=== PATIENT | male | born 1965 | race Caucasian/White ===

== ENCOUNTER 2021-01-30 02:06 | Inpatient (IN) | payer OTHER ==
[~2021-01-30] VITALS: Ht 172.7 cm; Wt 95.8 kg
--- NOTE | 2021-01-30 02:28 | NUR ---
PT STATES. LOWER LEFT PAIN STARTED THURSDAY. WOKE UP AROUND MIDNIGHT TONIGHT WITH PAIN COULD GO BACK TO SLEEP.
--- NOTE | 2021-01-30 02:48 | NUR ---
PT STATES HAS HYPERTENSION AND TAKES [id number] AND HAS BEEN TAKING IT FOR THE LAST 2 YEARS.
--- NOTE | 2021-01-30 02:55 | NUR ---
PT STATES "HAS ALSO HAD CHILLS WITH PAIN RADIATES GOES TO BACK"
[2021-01-30] MEDS ORDERED: ONDANSETRON 2MG/ML, 2ML IVPush ONE (03:00)
[2021-01-30] MEDS ORDERED: ONDANSETRON 2MG/ML, 2ML ONE (03:07)
[2021-01-30] MEDS ORDERED: MORPHINE SULFATE 4 MG/ML, 1ML ONE ×2 (03:08→06:12)
[2021-01-30 03:19] LABS: BASOPHILS % (AUTO) 2 % (0-1); EOSINOPHILS % (AUTO) 3 % (1-7); LYMPHOCYTES % (AUTO) 24 % (22-44); MEAN CORPUSCULAR HEMOGLOBIN 29.9 pg (27.5-34.5); MEAN CORPUSCULAR HGB CONC 35.3 g/dL (33.2-36.2); MEAN PLATELET VOLUME 8.5 fL (7.4-10.4); MONOCYTES % (AUTO) 8 % (2-9); NEUTROPHILS % (AUTO) 64 % (42-75); PLATELET COUNT 248 x10^3/uL (130-400); RED BLOOD COUNT 5.44 x10^6/uL (4.38-5.82); RED CELL DISTRIBUTION WIDTH 13.4 % (9.4-14.8)
[2021-01-30] MEDS: MORPHINE SULFATE 4 MG/ML, 1ML IVPush PRN ×2 (03:19→06:14)
[2021-01-30 03:20] LABS: MD NO
[2021-01-30 03:30] LABS: ALANINE AMINOTRANSFERASE 45 U/L (12-78); ALBUMIN 3.4 g/dL (3.4-5.0); ANION GAP 4 mmol/L (5-15); CALCIUM 8.6 mg/dL (8.5-10.1); CHLORIDE 107 mmol/L (98-107)
[2021-01-30 03:33] LABS: ALKALINE PHOSPHATASE 61 U/L (45-117); BILIRUBIN,TOTAL 0.4 mg/dL (0.2-1.0); TOTAL PROTEIN 7.3 g/dL (6.4-8.2)
[2021-01-30] MEDS ORDERED: OMNIPAQUE 350 MG/ML, 100ML BOTTLE ONE (04:08)
--- NOTE | 2021-01-30 04:14 | NUR ---
PT BACK FROM CT.
[2021-01-30 04:30] LABS: MICROSCOPIC NOT IND
[2021-01-30] MEDS ORDERED: CIPROFLOXACIN/PMX 400MG/200ML 200 ML IVPB ONE (05:30)
[2021-01-30] MEDS ORDERED: METRONIDAZOLE PMX 500MG/100ML 100 ML IV ONE (05:30)
[2021-01-30] MEDS ORDERED: METRONIDAZOLE PMX 500MG/100ML 100 ML ONE (05:54)
[2021-01-30] MEDS ORDERED: CIPROFLOXACIN/PMX 400MG/200ML 200 ML ONE (06:25)
--- NOTE | 2021-01-30 06:25 | NUR ---
PT VSS, ANTIBIOTIC THERAPY STARTED, PT EDUCATED. CALL [facility] WITHIN REACH.
[2021-01-30] MEDS ORDERED: hydrALAzine 20 MG/ML, 1ML IVPush PRN (06:30)
[2021-01-30] MEDS ORDERED: ONDANSETRON 2MG/ML, 2ML IVPush PRN (06:30)
[2021-01-30] MEDS: ENOXAPARIN 40 MG/0.4 ML SQ SCH (06:30)
[2021-01-30] MEDS ORDERED: DIPHENHYDRAMINE 25 MG CAPSULE PO PRN (06:30)
[2021-01-30] MEDS ORDERED: MORPHINE SULFATE 4 MG/ML, 1ML IVPush PRN (06:30)
[2021-01-30] MEDS: METRONIDAZOLE PMX 500MG/100ML 100 ML IV SCH ×3 (06:30→23:12)
[2021-01-30] MEDS ORDERED: ENALAPRILAT 1.25 MG/ML, 2ML IVPush PRN (06:30)
[2021-01-30] MEDS ORDERED: ONDANSETRON ODT 4 MG PO PRN (06:30)
--- NOTE | 2021-01-30 06:58 | NUR ---
GAVE REPORT SCOTTIE RN, RM [phone]. ALL QUESTION ADDRESSED.
[2021-01-30] MEDS: SODIUM CHLORIDE 0.9% 1,000 ML IV SCH ×3 (07:32→23:12)
[2021-01-30] MEDS: CIPROFLOXACIN/PMX 400MG/200ML 200 ML IV SCH ×2 (07:32→18:05)
[2021-01-30 07:33] VITALS: BP 151/95
[2021-01-30] MEDS ORDERED: LOSA1TAB22 PO (12:12)
[2021-01-30 12:43] VITALS: BP 136/85
[2021-01-30] MEDS: morphine SULFATE 10 MG/ML, 1ML IVPush PRN (14:33)
[2021-01-30 15:17] VITALS: BP 151/95
[2021-01-30] MEDS: NICOTINE 14MG/24 HR PATCH.TD24 TD SCH (17:34)
[2021-01-30 19:21] VITALS: BP 158/99
[2021-01-30] MEDS: HYDROcodone/APAP 5/325 TABLET PO PRN ×2 (20:15→21:29)
[2021-01-31] MEDS: morphine SULFATE 10 MG/ML, 1ML IVPush PRN ×2 (00:44→15:35)
[2021-01-31] MEDS: ACETAMINOPHEN 325 MG TABLET PO PRN (03:35)
[2021-01-31 04:00] VITALS: BP 157/91
[2021-01-31 05:28] LABS: BASOPHILS % (AUTO) 1 % (0-1); EOSINOPHILS % (AUTO) 3 % (1-7); LYMPHOCYTES % (AUTO) 20 % (22-44); MEAN CORPUSCULAR HEMOGLOBIN 29.5 pg (27.5-34.5); MEAN CORPUSCULAR HGB CONC 33.9 g/dL (33.2-36.2); MEAN PLATELET VOLUME 8.5 fL (7.4-10.4); MONOCYTES % (AUTO) 9 % (2-9); NEUTROPHILS % (AUTO) 67 % (42-75); PLATELET COUNT 227 x10^3/uL (130-400); RED BLOOD COUNT 4.88 x10^6/uL (4.38-5.82); RED CELL DISTRIBUTION WIDTH 13.5 % (9.4-14.8)
[2021-01-31] MEDS: CIPROFLOXACIN/PMX 400MG/200ML 200 ML IV SCH ×2 (05:36→17:39)
[2021-01-31 05:44] LABS: MD NO
[2021-01-31 05:52] LABS: ALBUMIN 2.9 g/dL (3.4-5.0); ANION GAP 4 mmol/L (5-15); CHLORIDE 107 mmol/L (98-107)
[2021-01-31 05:58] LABS: ALANINE AMINOTRANSFERASE 35 U/L (12-78); ALKALINE PHOSPHATASE 55 U/L (45-117); BILIRUBIN,TOTAL 0.6 mg/dL (0.2-1.0); CREATININE 1.08 mg/dL (0.7-1.3); TOTAL PROTEIN 6.5 g/dL (6.4-8.2)
[2021-01-31] MEDS: ENOXAPARIN 40 MG/0.4 ML SQ SCH (06:30)
[2021-01-31] MEDS: METRONIDAZOLE PMX 500MG/100ML 100 ML IV SCH ×3 (06:39→22:58)
[2021-01-31 07:06] VITALS: BP 155/95
[2021-01-31] MEDS: SODIUM CHLORIDE 0.9% 1,000 ML IV SCH ×2 (10:00→19:40)
[2021-01-31] MEDS: HYDROcodone/APAP 5/325 TABLET PO PRN ×2 (12:18→22:57)
[2021-01-31 13:05] VITALS: BP 153/95
[2021-01-31] MEDS: NICOTINE 14MG/24 HR PATCH.TD24 TD SCH ×2 (17:30→17:39)
[2021-01-31 19:30] VITALS: BP 152/96
[2021-02-01 03:20] VITALS: BP 163/89
[2021-02-01] MEDS: HYDROcodone/APAP 5/325 TABLET PO PRN ×2 (03:21→12:08)
[2021-02-01] MEDS: SODIUM CHLORIDE 0.9% 1,000 ML IV SCH ×3 (03:21→21:04)
[2021-02-01] MEDS: ENOXAPARIN 40 MG/0.4 ML SQ SCH (05:58)
[2021-02-01] MEDS: CIPROFLOXACIN/PMX 400MG/200ML 200 ML IV SCH ×2 (06:01→17:30)
[2021-02-01 07:04] VITALS: BP_SYST 167; BP_SYST 170; BP_DIAS 100; BP_DIAS 101
[2021-02-01] MEDS: METRONIDAZOLE PMX 500MG/100ML 100 ML IV SCH ×3 (07:44→23:08)
[2021-02-01 09:14] VITALS: BP 156/93
[2021-02-01] MEDS: ONDANSETRON 2MG/ML, 2ML IVPush PRN (09:15)
[2021-02-01 13:22] VITALS: BP 130/86
[2021-02-01] MEDS: NICOTINE 14MG/24 HR PATCH.TD24 TD SCH ×2 (15:11→15:12)
[2021-02-01 19:16] VITALS: BP 131/85
[2021-02-02] VITALS (7 sets, daily range): BP systolic 132–161; BP diastolic 72–102
[2021-02-02] MEDS: SODIUM CHLORIDE 0.9% 1,000 ML IV SCH (04:45)
[2021-02-02] MEDS: HYDROcodone/APAP 5/325 TABLET PO PRN (04:46)
[2021-02-02] MEDS: ONDANSETRON 2MG/ML, 2ML IVPush PRN (04:50)
[2021-02-02] MEDS: CIPROFLOXACIN/PMX 400MG/200ML 200 ML IV SCH (06:25)
[2021-02-02] MEDS: ENOXAPARIN 40 MG/0.4 ML SQ SCH (06:26)
[2021-02-02] MEDS: METRONIDAZOLE PMX 500MG/100ML 100 ML IV SCH (07:44)
[2021-02-02] MEDS: LOSARTAN PO SCH (07:44)
[2021-02-02] MEDS: HCTZ PO SCH (07:44)
[2021-02-02] MEDS ORDERED: LOSARTAN PO SCH (09:00)
[2021-02-02] MEDS ORDERED: HCTZ PO SCH (09:00)
[2021-02-02] MEDS ORDERED: CIPROFLOXACIN 500 MG/5 ML, ORAL SUSP PO SCH (11:00)
[2021-02-02] MEDS: metroNIDAZOLE 500 MG TABLET PO SCH (16:09)
[2021-02-02] MEDS: NICOTINE 14MG/24 HR PATCH.TD24 TD SCH (16:13)
[2021-02-02] MEDS: ACETAMINOPHEN 325 MG TABLET PO PRN (16:14)
[2021-02-02] MEDS: CIPROFLOXACIN 500 MG TABLET PO SCH (20:32)
[2021-02-02] MEDS: SODIUM CHLORIDE FLUSH 10ML SYR IVF SCH (21:00)
[2021-02-03] MEDS: metroNIDAZOLE 500 MG TABLET PO SCH ×2 (00:30→09:54)
[2021-02-03 00:34] VITALS: BP 158/98
[2021-02-03] MEDS: ENOXAPARIN 40 MG/0.4 ML SQ SCH ×2 (05:59→09:00)
[2021-02-03 09:11] VITALS: BP 159/94
[2021-02-03] MEDS ORDERED: METR500T PO (09:24)
[2021-02-03] MEDS ORDERED: CIPR500T87 PO (09:24)
[2021-02-03] MEDS: CIPROFLOXACIN 500 MG TABLET PO SCH (09:52)
[2021-02-03] MEDS: HCTZ PO SCH (09:55)
[2021-02-03] MEDS: LOSARTAN PO SCH (09:55)
[2021-02-03] MEDS: SODIUM CHLORIDE FLUSH 10ML SYR IVF SCH (10:14)
== END 2021-02-03 11:30 | disposition home or self-care (01) | DRG 872 ==
LOC: SUATTDRO 06:21 → ED 06:28 → EDIP 06:55 → 4NW 07:21 → DCLOUNGE 02-03 11:15
PROVIDERS: ADMIT Internal Medicine; ATTEND Family Medicine
DX: A41.9 Sepsis, unspecified organism (principal); E87.1 Hypo-osmolality and hyponatremia; K57.32 Diverticulitis of large intestine without perforation or abscess without bleeding; E66.9 Obesity, unspecified; I10 Essential (primary) hypertension; R73.9 Hyperglycemia, unspecified; Z68.32 Body mass index [BMI] 32.0-32.9, adult; Z83.3 Family history of diabetes mellitus; Z90.49 Acquired absence of other specified parts of digestive tract
CPT/HCPCS: 36415; 74177; 80053; 81003; 83036; 83690; 83735; 85025; 96374; 96375; 96376; G0378; J0744; J1650; J2405; Q9967; J0360; J2270; J7030